=== PATIENT | male | born 1990 | race Two or more races ===

== ENCOUNTER 2017-02-20 19:33 | Emergency (ER) | payer OTHER ==
[2017-02-20 20:12] VITALS: BP 116/74
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
--- NOTE | 2017-02-21 08:36 | CR ---
Left shoulder: Three views of the left shoulder were obtained. Distal clavicle is slightly elevated in relation to the acromion process. Glenohumeral joint is within normal limits. No fracture or other abnormality is seen. Impression: 1. Mild acromioclavicular separation. 2. Left shoulder study is otherwise unremarkable. Diagnostic code #3
== END 2017-02-20 21:15 | disposition home or self-care (01) ==
LOC: JD.ED 19:33
DX: S43.102A Unspecified dislocation of left acromioclavicular joint, initial encounter (principal); Z88.2 Allergy status to sulfonamides; Y04.0XXA Assault by unarmed brawl or fight, initial encounter
CPT/HCPCS: 73030-26-LT; 73030-LT; 99283